=== PATIENT | male | born 1970 | race Caucasian/White ===

== ENCOUNTER → 2017-01-12 | Outpatient (CLI) | payer OTHER ==
[~2017-01-12] MED LIST: ACETAMINOPHEN; BACTRIM DS TABL1 TA1 PO; FLEXERIL10 MG PO; HERBAL TEA; KEFLEX500 MG PO; LORTAB 5/500 TA1 TA2 PO; VOLTAREN75 MG PO; [UNRECOGNIZED DRUG - OTHER]
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
== END | disposition home or self-care (01) ==
LOC: CRAD 11:22
DX: M51.36 Other intervertebral disc degeneration, lumbar region (principal); M43.17 Spondylolisthesis, lumbosacral region; M25.78 Osteophyte, vertebrae
CPT/HCPCS: 72110